=== PATIENT | male | born 1995 | race Caucasian/White ===

== ENCOUNTER 2016-08-28 11:40 | Emergency (ER) | payer OTHER ==
[~2016-08-28] VITALS: Ht 180.3 cm; Wt 95.0 kg
[~2016-08-28 11:40] MED LIST: RISP0.2516 PO; SILV1CRE20 TOPICAL
[2016-08-28 11:41] VITALS: BP 129/69; PULSE 64; RESP 14; TEMP 97.4; O2SAT 96
--- NOTE | 2016-08-28 11:55 | PD ---
HPI Chief Complaint: Cold / Flu Symptoms Time Seen by Provider: 11:55 Travel History International Travel<30 days: No Contact w/Intl Traveler<30days: No Traveled to known affect area: No History of Present Illness HPI 21-year-old male coming in with a 10 day history of cough, and wheezing, was just doesn't seem to be getting better. Patient denies fever, chills, nausea, or vomiting. Patient states in the beginning had a sore throat without Better after several days with now he just has a cough in his chest just doesn't seem to want to get better. He is no history of asthma in the past. He has no history of pneumonia. He does smoke cigarettes. Patient works in a [employer]. Patient denies headache, sinus trouble, or sore throat. Patient does have some discomfort in the left ear. He has no known drug allergies. PFSH Past Medical History ADHD: Yes (ADHD) Cancer: No Cardiovascular Problems: No Diabetes: No Diminished Hearing: No Psychiatric: Yes (ODD, BIPOLAR) Immunizations Current: Yes Migraines: No Seizures: No Thyroid Disease: No Ulcer: No Past Surgical History Other Surgery: Yes (11 YEARS AGO T & A.) Social History Alcohol Use: Yes (2-3 YEARS AGO.) Tobacco Use: No Substance Use: Yes (MARIJUANA SIX MONTHS AGO.) Allergies-Medications (Allergen,Severity, Reaction): Coded Allergies: No Known Allergies (Unverified , 08/28/16) Reported Meds & Prescriptions Reported Meds & Active Scripts Active Silvadene Topical (Silver Sulfadiazine) 1 % Cream 1 Applic TOPICAL BID Reported Risperdal (Risperidone) 0.25 Mg Tab 0.25 Mg PO Review of Systems Except as stated in HPI: all other systems reviewed are Neg General / Constitutional: No: Fever, Chills Eyes: No: Visual changes HENT: Positive: Earache, No: Headaches, Vertigo, Lightheadedness, Sore Throat , Rhinitis, Rhinorrhea, Congestion, Nosebleed, Neck Stiffness, Neck Pain, Gingival Bleeding, Dental Difficulties, Ear Discharge Cardiovascular: No: Chest Pain or Discomfort Respiratory: Positive: Cough, Shortness of Breath, Wheezing, No: Sneezing, Orthopnea, Hemoptysis, Stridor, Night Sweats, Pleuritic Pain Gastrointestinal: No: Nausea, Abdominal Pain Genitourinary: No: Dysuria Musculoskeletal: No: Pain Skin: No Rash Neurologic: No: Weakness Psychiatric: No: Depression Endocrine: No: Polydipsia Hematologic/Lymphatic: No: Easy Bruising Physical Exam Narrative GENERAL: Patient appears in no acute distress. SKIN: Warm and dry. Normal color. Normal turgor. HEAD: Atraumatic. Normocephalic. EYES: Pupils equal and round. No scleral icterus. No injection or drainage. ENT: No nasal bleeding or discharge. Mucous membranes pink and moist. TMs are clear bilaterally. No sinus tenderness with palpation. Pharynx is clear. Airway is patent. NECK: Trachea midline. No JVD. CARDIOVASCULAR: Regular rate and rhythm. RESPIRATORY: No accessory muscle use. Patient has diffuse wheezes bilaterally more on the left than the right to auscultation. Patient has Rales and rhonchi in the left lower lung field. Patient has decreased breath sounds in the left lower lung field. Patient has no increased fremitus or egophony. MUSCULOSKELETAL: Extremities without clubbing, cyanosis, or edema. No obvious deformities. NEUROLOGICAL: Awake and alert. No obvious cranial nerve deficits. Motor grossly within normal limits. Five out of 5 muscle strength in the arms and legs. Normal speech. PSYCHIATRIC: Appropriate mood and affect; insight and judgment normal. Data Data Last Documented VS Vital Signs Date Time Temp Pulse Resp B/P Pulse Ox O2 Delivery O2 Flow Rate FiO2 08/28/16 12:53 99 21 08/28/16 11:41 97.4 64 14 129/69 Room Air Orders Chest, Pa & Lat (08/28/16 12:16) Prednisone (Deltasone) (08/28/16 12:30) Albuterol-Ipratropium Neb (Duoneb Neb) (08/28/16 12:30) Azithromycin (Zithromax) (08/28/16 12:45) [facility] Medical Decision Making Medical Screen Exam Complete: Yes Emergency Medical Condition: Yes Differential Diagnosis Bronchitis. Wheezing. Pneumonia. Narrative Course Patient is medical stable at time of exam. Chest x-ray PA and lateral is ordered. Patient is given 40 mg prednisone by mouth. Patient is given DuoNeb 1. Chest x-ray shows no significant findings per radiologist. Patient's symptoms are improved after the DuoNeb and medications above. Patient will be discharged home with azithromycin 500 mg daily times the next 3 days. Patient is take prednisone 20 mg twice a day 5 days. Patient is to use Ventolin inhaler 2 puffs every 4-6 hours when necessary wheeze. Patient should quit smoking as soon as possible. Patient is given a note return to work tomorrow. Patient follow-up with his primary care physician or return to emergency Department with worsening symptoms as needed. Diagnosis Primary Impression: Bronchitis Additional Impression: Wheezing Referrals: Primary Care Physician Patient Instructions: Acute Bronchitis (ED), General Instructions, Wheezing (ED ) Departure Forms: Work Release Enter return to work date: Aug 29, 2016 Additional Instructions: Chest x-ray shows no significant findings per radiologist. Patient's symptoms are improved after the DuoNeb and medications above. Patient will be discharged home with azithromycin 500 mg daily times the next 3 days. Patient is take prednisone 20 mg twice a day 5 days. Patient is to use Ventolin inhaler 2 puffs every 4-6 hours when necessary wheeze. Patient should quit smoking as soon as possible. Patient is given a note return to work tomorrow. Patient follow-up with his primary care physician or return to emergency Department with worsening symptoms as needed. Med/Other Pt SpecificInfo: Prescription(s) given Disposition: DISCHARGE HOME Condition: Stable Parker uBrr Aug 28, 2016 11:55
[2016-08-28] MEDS ORDERED: RESP: ALBUTEROL 2.5 MG/IPRATROPIUM 0.5 MG NEB (SCH) INH ONE (12:30)
[2016-08-28] MEDS ORDERED: predniSONE 20 MG TAB PO ONE (12:30)
--- NOTE | 2016-08-28 12:43 | RADRPT ---
EXAM DATE/TIME: 08/28/2016 12:36 [place] COMPARISON: No previous studies available for comparison. INDICATIONS : Wheezing, Shortness of Breath MEDICAL HISTORY : None. SURGICAL HISTORY : None. ENCOUNTER: Initial ACUITY: 1 day PAIN SCORE: 0/10 LOCATION: Bilateral chest FINDINGS: PA and lateral views of the chest demonstrate the lungs to be symmetrically aerated without evidence of mass, infiltrate or effusion. The cardiomediastinal contours are unremarkable. Osseous structure s are intact. CONCLUSION: No acute disease. Juanito Shaffer MD on August 28, 2016 at 12:40 Board Certified Radiologist. This report was verified electronically.
[2016-08-28] MEDS ORDERED: AZITHROMYCIN 250 MG TAB PO ONE (12:45)
[2016-08-28 12:53] VITALS: O2SAT 99
[2016-08-28] MEDS ORDERED: VENTAER INH (13:06)
[2016-08-28] MEDS ORDERED: PRED20 PO (13:06)
[2016-08-28] MEDS ORDERED: AZIT500T2 PO (13:06)
== END 2016-08-28 13:20 | disposition home or self-care (01) ==
LOC: NEPB 11:40
DX: J40 Bronchitis, not specified as acute or chronic (principal); R06.2 Wheezing; F17.210 Nicotine dependence, cigarettes, uncomplicated
CPT/HCPCS: 71020; 94664; 99283; J7512